=== PATIENT | male | born 1965 | race Two or more races ===

== ENCOUNTER 2017-07-23 10:40 | Emergency (ER) | payer OTHER ==
[2017-07-23 10:45] VITALS: TEMP 98; BMI 25.0
--- NOTE | 2017-07-23 10:59 | PDOC ---
History of Present Illness - History of Present Illness Initial Comments: 07/23/17 11:19 The patient is a 52 year old male, with a significant past medical history of, who presents to the emergency department for 6 month complaint of epigastric pain that radiates to throat. He reports he has been taking omeprazole for about a month with little to no relief of his symptoms. He reportedly was seen in Dr. Camargo office a week ago where he was provided a referral for GI specialist. The patient states his burning pain was keeping him up at night and his GI appointment is not until 08/04/17. He denies chest pain, shortness of breath, headache and dizziness. He denies fever, chills, nausea, vomit, diarrhea and constipation. He denies dysuria, frequency, urgency and hematuria. Allergies: NKDA Past surgical history: none reported Social history: denies toxic habits PCP: Dr. Navdeep Cotton <Paulette Freed - Last Filed: 07/23/17 12:11> <Sascha Herbert - Last Filed: 07/23/17 15:11> - General Chief Complaint: Pain Stated Complaint: THROAT PAIN Time Seen by Provider: 07/23/17 10:58 Past History <Paulette Freed - Last Filed: 07/23/17 12:11> - Past Medical History Diabetes: Yes HTN: Yes - Suicide/Smoking/Psychosocial Hx Smoking History: Never smoked Hx Alcohol Use: No Drug/Substance Use Hx: No Substance Use Type: None <Sascha Herbert - Last Filed: 07/23/17 15:11> - Past Medical History Allergies/Adverse Reactions: Allergies Allergy/AdvReac Type Severity Reaction Status Date / Time No Known Allergies Allergy Verified 07/23/17 10:45 Home Medications: Ambulatory Orders Famotidine [Pepcid] 40 mg PO BID #60 tablet 07/23/17 Pantoprazole Sodium [Protonix] 40 mg PO BID #60 tablet. 07/23/17 Review of Systems - Review of Systems Able to Perform ROS?: Yes Comments:: 07/23/17 11:19 GENERAL/CONSTITUTIONAL: No fever or chills. No weakness. HEAD, EYES, EARS, NOSE AND THROAT: No change in vision. No ear pain or discharge. No sore throat. CARDIOVASCULAR: No chest pain or shortness of breath. RESPIRATORY: No cough, wheezing, or hemoptysis. GASTROINTESTINAL: (+) burning to epigastric radiating to throat. No nausea, vomiting, diarrhea or constipation. GENITOURINARY: No dysuria, frequency, or change in urination. MUSCULOSKELETAL: No joint or muscle swelling or pain. No neck or back pain. SKIN: No rash NEUROLOGIC: No headache, vertigo, loss of consciousness, or change in strength/ sensation. ENDOCRINE: No increased thirst. No abnormal weight change. HEMATOLOGIC/LYMPHATIC: No anemia, easy bleeding, or history of blood clots. ALLERGIC/IMMUNOLOGIC: No hives or skin allergy. <Paulette Freed - Last Filed: 07/23/17 12:11> *Physical Exam - Vital Signs Last Vital Signs Temp Pulse Resp BP Pulse Ox 98.0 F 85 20 170/103 99 07/23/17 10:41 07/23/17 10:41 07/23/17 10:41 07/23/17 10:41 07/23/17 10:41 - Physical Exam Comments: 07/23/17 11:23 GENERAL: Awake, alert, and fully oriented, in no acute distress HEAD: No signs of trauma EYES: PERRLA, EOMI, sclera anicteric, conjunctiva clear ENT: Auricles normal inspection, hearing grossly normal, nares patent, oropharynx clear without exudates. Moist mucosa NECK: Normal ROM, supple, no lymphadenopathy, JVD, or masses LUNGS: Breath sounds equal, clear to auscultation bilaterally. No wheezes, and no crackles HEART: Regular rate and rhythm, normal S1 and S2, no murmurs, rubs or gallops ABDOMEN: Soft, nontender, normoactive bowel sounds. No guarding, no rebound. No masses EXTREMITIES: Normal range of motion, no edema. No clubbing or cyanosis. No cords, erythema, or tenderness NEUROLOGICAL: Cranial nerves II through XII grossly intact. Normal speech, normal gait SKIN: Warm, Dry, normal turgor, no rashes or lesions noted. <Paulette Freed - Last Filed: 07/23/17 12:11> - Vital Signs Last Vital Signs Temp Pulse Resp BP Pulse Ox 98.0 F 85 20 170/103 99 07/23/17 10:41 07/23/17 10:41 07/23/17 10:41 07/23/17 10:41 07/23/17 10:41 <Sascha Herbert - Last Filed: 07/23/17 15:11> Heart Score/ECG Review #1 ECG reviewed & interpreted by me at: 12:05 (Normal Sinus Rhythm) <Paulette Freed - Last Filed: 07/23/17 12:11> ED Treatment Course - LABORATORY CBC & Chemistry Diagram: 07/23/17 12:00 07/23/17 12:00 <Paulette Freed - Last Filed: 07/23/17 12:11> - LABORATORY CBC & Chemistry Diagram: 07/23/17 12:00 07/23/17 12:00 <Sascha Herbert - Last Filed: 07/23/17 15:11> *DC/Admit/Observation/Transfer - Attestations Scribe Attestion: 07/23/17 11:24 Documentation prepared by Paulette Freed, acting as medical photographer for Sascha Herbert DO <Paulette Freed - Last Filed: 07/23/17 12:11> - Discharge Dispostion Admit: No - Attestations Physician Attestion: 07/23/17 10:59 I, Dr. Sascha Herbert, attest that this document has been prepared under my direction and personally reviewed by me in its entirety. I further attest, that it accurately reflects all work, treatment, procedures and medical decision -making performed by me. <Sascha Herbert - Last Filed: 07/23/17 15:11> Diagnosis at time of Disposition: Gastroesophageal reflux disease with esophagitis - Discharge Dispostion Disposition: HOME Condition at time of disposition: Unchanged/Unknown - Prescriptions Prescriptions: Famotidine [Pepcid] 40 mg PO BID #60 tablet Pantoprazole Sodium [Protonix] 40 mg PO BID #60 tablet.dr - Patient Instructions Printed Discharge Instructions: DI for Gastroesophageal Reflux Disease (GERD) Additional Instructions: DAVID- STOP THE PRILOSEC USE THE MEDICINES I PRESCRIBED TODAY UNTIL YOU CAN SEE THE GI SPECIALIST BEST- DR.FRANK HERBERT
[2017-07-23] MEDS ORDERED: PANTOPRAZOLE SODIUM 40 MG VIAL IVPUSH ONE (11:09)
[2017-07-23] MEDS ORDERED: FAMOTIDINE 20 MG/50 ML IVPB 50 ML IVPB ONE ×2 (11:09→12:08)
[2017-07-23 12:08] LABS: BASOPHIL 0.8 % (0-2.0); EOSINOPHIL 4.9 % (0-4.5); MCH 22.3 pg (25.7-33.7); MCHC 32.1 g/dl (32.0-35.9); MEAN CELL VOLUME 69.7 fl (80-96); MEAN PLT VOLUME 8.9 fl (7.5-11.1); NEUTROPHILS 57.2 % (42.8-82.8); PLATELET COUNT 283 K/MM3 (134-434); RDW 12.9 % (11.9-15.9); WHITE BLOOD COUNT 7.7 K/mm3 (4.0-10.0)
[2017-07-23 12:37] LABS: ALBUMIN 4.3 g/dl (3.4-5.0); ANION GAP 10 (8-16); CALCIUM 9.6 mg/dL (8.5-10.1); CO2 31 mmol/L (21-32); CREATININE 0.9 mg/dL (0.7-1.3); GLUCOSE,RANDOM 153 mg/dL (74-106); SGPT/ALT 46 U/L (12-78)
[2017-07-23 12:41] LABS: ALK PHOS 76 U/L (45-117); BILIRUBIN,TOTAL 0.7 mg/dL (0.2-1.0); TOT PROT 8.1 g/dl (6.4-8.2); TROPONIN I < 0.02 ng/ml (0.00-0.05)
[2017-07-23 12:55] LABS: SGOT/AST 34 U/L (15-37)
[2017-07-23 13:53] LABS: URINE APPEARANCE CLEAR; URINE BILIRUBIN NEGATIVE (NEGATIVE); URINE BLOOD NEGATIVE (NEGATIVE); URINE COLOR COLORLESS; URINE GLUCOSE (UA) NEGATIVE (NEGATIVE); URINE KETONE NEGATIVE (NEGATIVE); URINE NITRITE NEGATIVE (NEGATIVE); URINE PROTEIN NEGATIVE (NEGATIVE); URINE UROBILINOGEN NEGATIVE mg/dL (0.2-1.0)
[2017-07-23 14:08] LABS: CPK 118 IU/L (39-308)
[2017-07-23 15:46] VITALS: BP 138/85; PULSE 78
[2017-07-23 16:37] LABS: URINE LEUK ESTERASE Negative (NEGATIVE)
[2017-07-23 19:14] LABS: ANISOCYTOSIS 1+; MICROCYTOSIS 1+; PLATELET COMMENT2 NO CLOTTING DETECTED; PLATELET ESTIMATE ADEQUATE (NORMAL); POLYCHROMASIA 1+
--- NOTE | 2017-07-24 10:44 | EKG ---
Test Reason : Blood Pressure : / mmHG Vent. Rate : 079 BPM Atrial Rate : 079 BPM P-R Int : 174 ms QRS Dur : 094 ms QT Int : 366 ms P-R-T Axes : 070 -02 024 degrees QTc Int : 419 ms NORMAL SINUS RHYTHM POSSIBLE LEFT ATRIAL ENLARGEMENT LEFT VENTRICULAR HYPERTROPHY CANNOT RULE OUT SEPTAL INFARCT , AGE UNDETERMINED ABNORMAL ECG NO PREVIOUS ECGS AVAILABLE Confirmed by ABDOULAYE DEWITT MD ([id number]) on 07/24/2017 10:43:53 AM Referred By: Confirmed By:ABDOULAYE DEWITT MD
== END 2017-07-23 15:46 | disposition home or self-care (01) ==
LOC: JER 10:40
PROC: 3E033GC Introduction of Other Therapeutic Substance into Peripheral Vein, Percutaneous Approach (ICD-10-PCS; principal; 2017-07-23)
DX: K21.0 Gastro-esophageal reflux disease with esophagitis (principal); E11.9 Type 2 diabetes mellitus without complications; I10 Essential (primary) hypertension
CPT/HCPCS: 36415; 71010-TC; 74020-TC; 76705-TC; 80053; 81003; 82550; 83690; 84484; 85025; 93005; 93010; 99283-25

== ENCOUNTER 2019-06-21 09:21 | Day surgery (SDC) | payer OTHER ==
[2019-06-17 19:07] VITALS: BMI 24.4
[2019-06-21] MEDS ORDERED: MIDAZOLAM HCL 2 MG/2 ML SINGLE DOSE VIAL ONE (11:51)
--- NOTE | 2019-06-21 13:14 | OP ---
Operative Note - Note: Operative Date: 06/21/19 Pre-Operative Diagnosis: RIGHT RENAL STONE Operation: RIGHT eswl Findings: 1 mm lower pole Right kidney stone Post-Operative Diagnosis: Same as Pre-op Anesthesia: Fractional Estimated Blood Loss (mls): 0 Drains, Volume Out (mls): 0 Operative Report Dictated: Yes
[2019-06-21 14:20] VITALS: BP 138/90; PULSE 70; TEMP 97.9
--- NOTE | 2019-06-21 18:06 | OP ---
DATE OF OPERATION: 06/21/2019 PREOPERATIVE DIAGNOSIS: Right renal stone. POSTOPERATIVE DIAGNOSIS: Right renal stone. PROCEDURE: Right extracorporeal shock-wave lithotripsy. ATTENDING: Mihai Don MD ANESTHESIA: General. DESCRIPTION OF PROCEDURE: Patient was brought in the operating room and placed in supine position on the operating room table. Ultrasonography and fluoroscopy were performed. A 4-mm right-sided renal stone was identified. Anesthesia and preoperative antibiotics were then administered. Shock-wave lithotripsy was then performed. Excellent fragmentation of the stone was noted under real time ultrasonography and fluoroscopy. No complications were noted. DISPOSITION OF THE PATIENT: To recovery room. Jamie [id number]
== END 2019-06-21 14:21 | disposition home or self-care (01) ==
LOC: JASU-SURG 09:21
PROVIDERS: ATTEND Urology
PROC: 0TF3XZZ Fragmentation in Right Kidney Pelvis, External Approach (ICD-10-PCS; principal; 2019-06-21 11:00)
DX: N20.0 Calculus of kidney (principal)
CPT/HCPCS: 82962